=== PATIENT | female | born 1950 | race Caucasian/White ===

== ENCOUNTER 2017-12-13 14:30 | Emergency (ER) | payer OTHER, MEDICARE ==
[~2017-12-13] VITALS: Ht 165.1 cm; Wt 98.9 kg
[2017-12-13 17:06] VITALS: BP 152/89
== END 2017-12-13 17:06 | disposition home or self-care (01) ==
LOC: EME 14:30
PROC: 0HQ1XZZ Repair Face Skin, External Approach (ICD-10-PCS; principal; 2017-12-13)
DX: S01.111A Laceration without foreign body of right eyelid and periocular area, initial encounter (principal); S16.1XXA Strain of muscle, fascia and tendon at neck level, initial encounter; W01.0XXA Fall on same level from slipping, tripping and stumbling without subsequent striking against object, initial encounter; Y92.830 Public park as the place of occurrence of the external cause; Z88.0 Allergy status to penicillin
CPT/HCPCS: 70450; 72125; 99281; 99283